=== PATIENT | female | born 1960 | race Caucasian/White ===

== ENCOUNTER 2018-07-20 00:27 | Emergency (ER) | payer OTHER ==
--- NOTE | 2018-07-20 01:18 | ER Document Report ---
ED Medical Screen (RME) - General Chief Complaint: Foot Pain Stated Complaint: LEFT FOOT INJURY Time Seen by Provider: 07/20/18 01:10 Mode of Arrival: Wheelchair Information source: Patient, Relative Notes: Patient is a 58-year-old female comes emergency room pushed by her daughter in a wheelchair complaint of left foot pain. Patient denies any trauma started about 1 PM this afternoon and when she went to bed tonight and went to get up she could not put any weight on the foot. Again she denies any known trauma. Does not have a history of hoarding in the past. She denies any other medical problems. TRAVEL OUTSIDE OF THE [place] IN LAST 30 DAYS: No - HPI Onset: Other - 1 PM this afternoon. Onset/Duration: Sudden, Worse Quality of pain: Sharp, Throbbing Severity: Moderate Pain Level: 3 Associated Symptoms: None Exacerbated by: Denies Relieved by: Denies Similar symptoms previously: No Recently seen / treated by doctor: No - Related Data Smoking: Non-smoker Frequency of alcohol use: None Drug Abuse: None Allergies/Adverse Reactions: No Known Allergies Allergy (Unverified 09/28/16 20:39) Past Medical History - General Information source: Patient - Social History Cigarette use (# per day): No Chew tobacco use (# tins/day): No Frequency of alcohol use: None Drug Abuse: None Lives with: Family Family history: Reviewed & Not Pertinent Psychiatric Medical History: Reports: Hx Depression Past Surgical History: Reports: Hx Appendectomy - Immunizations Hx Diphtheria, Pertussis, Tetanus Vaccination: Yes Review of Systems - Review of Systems Constitutional: No symptoms reported EENT: No symptoms reported Cardiovascular: No symptoms reported Respiratory: No symptoms reported Gastrointestinal: No symptoms reported Genitourinary: No symptoms reported Female Genitourinary: No symptoms reported Musculoskeletal: Joint pain, Muscle pain, Other - Left foot pain Skin: No symptoms reported Hematologic/Lymphatic: No symptoms reported Neurological/Psychological: No symptoms reported -: Yes All other systems reviewed and negative Physical Exam - Vital signs Vitals: Pulse Pulse Ox 96 96 07/20/18 00:31 07/20/18 00:31 - Notes Notes: Well-nourished well-developed 58-year-old female who appears much older than her stated age no apparent distress but appears uncomfortable. - General General appearance: Alert - Respiratory Respiratory status: No respiratory distress Chest status: Nontender Breath sounds: Normal. No: Rales, Rhonchi, Stridor, Wheezing Chest palpation: Normal - Cardiovascular Rhythm: Regular Heart sounds: Normal auscultation Murmur: No - Extremities General upper extremity: Normal inspection, Nontender, Normal ROM, Normal strength General lower extremity: Tender. No: Edema, Normal ROM, Normal strength, Normal temperature, Normal weight bearing, Tucker's sign Foot: Tender, Tender 5th metatarsal, Unable to bear weight, Other - Examination of patient's left foot shows the dorsum of the foot to be extremely tender to palpation but more so along the lateral aspect of the foot along the fifth metacarpal area. Patient displays 2 pulses on the dorsalis pedis and she has difficulty with flexion extension of the toes secondary to pain and discomfort.. No: Edema, Instability, Navicular tenderness, No evidence of FB, Puncture wound Course - Vital Signs Vital signs: Temp Pulse Resp BP Pulse Ox 98.7 F 100 139/92 H 92 07/20/18 00:33 07/20/18 00:33 07/20/18 00:33 07/20/18 00:33 Doctor's Discharge - Discharge Referrals: DARRYN RUBY PA [Primary Care Provider] - Follow up as needed
--- NOTE | 2018-07-20 02:23 | RADIOLOGY REPORT (SQ) ---
CLINICAL HISTORY: pain top and side of foot COMPARISON: None. TECHNIQUE: XR FOOT 3 OR MORE VIEWS 07/20/2018 1:12 AM CDT FINDINGS: There is no fracture. Joint spaces are preserved. Soft tissues are unremarkable. IMPRESSION: No acute osseous findings.
[2018-07-20] MEDS ORDERED: ACETAMINOPHEN 325 MG TABLET PO ONE (02:31)
--- NOTE | 2018-07-20 02:31 | ER Document Report ---
HPI - HPI Patient complains to provider of: foot pain Pain Level: 3 Context: Patient is a 58-year-old female presenting to the emergency department after inverting her left ankle. Patient states she has pain to the dorsum of her left foot. Patient denies pain in the medial or lateral malleolus. Patient also denies any tibiofibular bone tenderness. Patient denies falling or hitting her head, neck, back. Patient also denies loss of consciousness. Past medical history: Depression, anxiety Medications: Prozac, BuSpar Allergies: None Surgical history: Appendectomy - MUSCULOSKELETAL Musculoskeletal: REPORTS: Extremity pain - left foot Past Medical History - General Information source: Patient - Social History Smoking Status: Never Smoker Cigarette use (# per day): No Chew tobacco use (# tins/day): No Frequency of alcohol use: None Drug Abuse: None Lives with: Family Family History: Reviewed & Not Pertinent Patient has suicidal ideation: No Patient has homicidal ideation: No Renal/ Medical History: Denies: Hx Peritoneal Dialysis Psychiatric Medical History: Reports: Hx Depression Past Surgical History: Reports: Hx Appendectomy - Immunizations Hx Diphtheria, Pertussis, Tetanus Vaccination: Yes Vertical Provider Document - CONSTITUTIONAL Agree With Documented VS: Yes Notes: GENERAL: Alert, interacts well. No acute distress. HEAD: Normocephalic, atraumatic. EYES: Pupils equal, round, and reactive to light. Extraocular movements intact. ENT: Oral mucosa moist, tongue midline. NECK: Full range of motion. Supple. Trachea midline. LUNGS: Clear to auscultation bilaterally, no wheezes, rales, or rhonchi. No respiratory distress. HEART: Regular rate and rhythm. No murmur ABDOMEN: Soft, non-tender. Non-distended. Bowel sounds present in all 4 quadrants. EXTREMITIES: Moves all 4 extremities spontaneously. normal radial and dorsalis pedis pulses bilaterally. No cyanosis. Minor swelling dorsum left foot, no ecchymosis noted. No pain upon palpation lateral or medial malleolus. BACK: no cervical, thoracic, lumbar midline tenderness. No saddle anesthesia, normal distal neurovascular exam. NEUROLOGICAL: Alert and oriented x3. Normal speech. cranial nerves II through XII grossly intact PSYCH: Normal affect, normal mood. SKIN: Warm, dry, normal turgor. - INFECTION CONTROL TRAVEL OUTSIDE OF THE [place] IN LAST 30 DAYS: No Course - Re-evaluation Re-evalutation: 07/20/18 02:29 X-ray reveals no bony abnormalities. Discussed findings with patient at bedside. Discussed need for follow-up with primary care in the next 24-48 hours. Also discussed possible orthopedic referral. - Vital Signs Vital signs: Temp Pulse Resp BP Pulse Ox 98.7 F 100 139/92 H 92 07/20/18 00:33 07/20/18 00:33 07/20/18 00:33 07/20/18 00:33 Discharge - Discharge Clinical Impression: Foot injury Qualifiers: Encounter type: initial encounter Laterality: left Qualified Code(s): S99.922A - Unspecified injury of left foot, initial encounter Condition: Stable Disposition: HOME, SELF-CARE Additional Instructions: You have been seen and treated in the emergency department for a left foot injury. At this point in time there appears to be no fractures or broken bones noted on your x-rays. You should take Tylenol or Motrin at home for the pain. You should also use the [place] RICE. R for rest, I is for ice, C is for compression or Abiel wrap. E is for elevation. Follow-up with primary care in the next 24-48 hours, orthopedic referral will also be given in this discharge packet. Return to the emergency room for any other concerning symptoms. Forms: Return to Work Referrals: DARRYN RUBY PA [Primary Care Provider] - Follow up as needed ADELINE KIM MD [ACTIVE STAFF] - Follow up as needed
[2018-07-20 02:49] VITALS: BP 131/82
== END 2018-07-20 02:49 | disposition home or self-care (01) ==
LOC: ER 00:27
DX: S99.922A Unspecified injury of left foot, initial encounter (principal); X50.0XXA Overexertion from strenuous movement or load, initial encounter
CPT/HCPCS: 99283